=== PATIENT | male | born 1975 | race African-American/Black ===

== ENCOUNTER 2019-10-07 04:34 | Emergency (ER) | payer OTHER ==
[~2019-10-07] VITALS: Ht 185.4 cm; Wt 104.3 kg
[~2019-10-07 04:34] MED LIST: IBUPROFEN 600600 M1 PO; TOBREX5 ML OPHTHALMIC
[2019-10-07 05:23] LABS: ABSOLUTE BASOPHILS 0.2 thou/uL (0.0-0.2); ABSOLUTE EOSINOPHILS 0.1 thou/uL (0.0-0.7); ABSOLUTE LYMPHOCYTES 6.3 thou/uL (0.8-5.3); ABSOLUTE MONOCYTES 0.6 thou/uL (0.0-1.2); ABSOLUTE NEUTROPHILS 4.6 thou/uL (1.6-8.1); BASOPHILS 1.3 %; EOSINOPHILS 0.6 %; HEMATOCRIT 47.3 % (42.0-52.0); LYMPHOCYTES 53.6 %; MCHC 33.7 g/dL (28.0-37.0); MCV 85.9 fL (80.0-100.0); MONOCYTES 5.5 %; MPV 7.8 fl. (7.2-11.1); NUCLEATED RBCS 0 /100WBC; PLATELET COUNT* 340 thou/uL (150-400); RDW-CV 14.9 % (10.5-14.5); WBC 11.8 thou/uL (4.0-11.0)
[2019-10-07 05:32] LABS: CALCIUM 7.9 mg/dL (8.5-10.1); CREATININE 1.6 mg/dL (0.6-1.3); POTASSIUM 3.4 mmol/L (3.5-5.1)
[2019-10-07 05:37] LABS: ALBUMIN 3.7 g/dL (3.4-5.0); TOTAL BILIRUBIN 0.3 mg/dL (<0.1-1.0); TOTAL PROTEIN 7.6 g/dL (6.4-8.2)
[2019-10-07] MEDS ORDERED: DIPHENHIST50 MG PO (07:20)
[2019-10-07 07:25] VITALS: BP 135/60
--- NOTE | 2019-10-07 13:09 | EKG ---
[place] [address] ELECTROCARDIOGRAM REPORT Name: DAYA RUIZ Room: [facility]#: [id number] Admission: 10/07/19 Attend Phys: Discharge: 10/07/19 Date of : 79 Date of Service: 10/07/19 0505 Report #: [id number] THIS REPORT FOR: //name// [facility] ED Test Date: 2019-10-07 Test Time: 05:05:30 Pat Name: DAYA RUIZ Department: Room: Gender: [employer]: : 1975 Requested By: Eli Moreau Order Number: [id number] MD: Austin Thakur Measurements Intervals [place] Rate: 98 P: 51 CA: 133 QRS: 62 QRSD: 91 T: -86 QT: 324 QTc: 414 Interpretive Statements Sinus rhythm Probable left atrial enlargement Probable left ventricular hypertrophy Nonspecific T abnormalities, diffuse leads Baseline wander in lead(s) V1,V2,V3,V4,V5 No previous ECG available for comparison Electronically Signed On 10-07-2019 13:09:09 CDT by Austin Thakur [email or web address] <ELECTRONICALLY SIGNED> By: Austin Thakur MD, [facility] 10/07/19 1309 0505 [id number] Austin Thakur MD, [facility] /EPI
== END 2019-10-07 07:25 | disposition left against medical advice (07) ==
LOC: M.ERS 04:34
PROVIDERS: Personal Emergency Response Attendant
DX: L50.9 Urticaria, unspecified (principal); F10.129 Alcohol abuse with intoxication, unspecified; R55 Syncope and collapse; Z91.041 Radiographic dye allergy status; Y90.6 Blood alcohol level of 120-199 mg/100 ml